=== PATIENT | male | born 1945 | race Caucasian/White ===

== ENCOUNTER 2018-08-21 15:21 | Outpatient (CLI) | payer MEDICARE, OTHER, SELFPAY ==
[2018-08-21 16:18] LABS: CREATININE 1.24 mg/dL (0.70-1.30)
== END 2018-08-21 15:41 ==
PROVIDERS: PCP Internal Medicine; Visit Provider Psychiatry & Neurology Neurology
DX: G61.82 Multifocal motor neuropathy (principal)
CPT/HCPCS: 36415; 82565

== ENCOUNTER 2018-08-29 02:24 | Outpatient (RCR) | payer MEDICARE, OTHER, SELFPAY ==
[2018-08-27 10:50] VITALS: BP 136/73; PULSE 59; RESP 18; TEMP 36.5; O2SAT 98
[2018-08-27] MEDS: IMMUNE GLOBULIN 10 GM/100 ML BTL IVPB (10:52)
[2018-08-27] MEDS: IMMUNE GLOBULIN 20 GM/200 ML BTL IVPB (10:52)
[2018-08-27] MEDS: Normal Saline Flush 10 ML SYR IVP (10:53)
[2018-08-27 11:12] VITALS: BP 133/75; PULSE 56; RESP 18; TEMP 36.6; O2SAT 98
[2018-08-27 11:32] VITALS: BP 135/80; PULSE 56; RESP 18; TEMP 36.6; O2SAT 98
[2018-08-27 12:10] VITALS: BP 133/80; PULSE 62; RESP 18; TEMP 36.5; O2SAT 96
[2018-08-28 10:24] VITALS: BP 133/80; PULSE 62; RESP 18; TEMP 36.5; O2SAT 96
[2018-08-28] MEDS: IMMUNE GLOBULIN 20 GM/200 ML BTL IVPB (10:35)
[2018-08-28] MEDS: Normal Saline Flush 10 ML SYR IVP (10:35)
[2018-08-28] MEDS: IMMUNE GLOBULIN 10 GM/100 ML BTL IVPB (10:35)
[2018-08-28 10:36] VITALS: BP 143/81; PULSE 64; RESP 18; TEMP 36.3; O2SAT 96
[2018-08-28 11:10] VITALS: BP 142/79; PULSE 65; RESP 18; TEMP 36.5; O2SAT 97
[2018-08-28 11:26] LABS: CREATININE 1.33 mg/dL (0.70-1.30); Estimated GFR 52.85 (mL/min/1.73m2)
[2018-08-28 11:32] VITALS: BP 142/83; PULSE 54; RESP 18; TEMP 36.5; O2SAT 98
[2018-08-29 10:43] VITALS: BP 152/82; PULSE 69; RESP 18; TEMP 36.6; O2SAT 98
[2018-08-29 10:53] LABS: CREATININE 1.27 mg/dL (0.70-1.30); Estimated GFR 55.75 (mL/min/1.73m2)
[2018-08-29] MEDS: IMMUNE GLOBULIN 10 GM/100 ML BTL IVPB (10:53)
[2018-08-29] MEDS: IMMUNE GLOBULIN 20 GM/200 ML BTL IVPB (10:53)
[2018-08-29] MEDS: Normal Saline Flush 10 ML SYR IVP (10:53)
[2018-08-29 11:03] VITALS: BP 168/91; PULSE 63; RESP 14; TEMP 36.6; O2SAT 97
[2018-08-29 11:27] VITALS: BP 145/68; PULSE 60; RESP 16; O2SAT 97
== END 2018-09-16 23:59 | disposition home or self-care (01) ==
LOC: INF 02:24
PROVIDERS: PCP Internal Medicine; Visit Provider Psychiatry & Neurology Neurology
DX: G61.82 Multifocal motor neuropathy (principal)
CPT/HCPCS: 36415; 96365; 96366; 82565; J1561

== ENCOUNTER → 2018-09-17 09:01 | Outpatient (BNVA) | payer MEDICARE, OTHER, SELFPAY | PROVIDERS: PCP Internal Medicine; Visit Provider Psychiatry & Neurology Neurology | DX: G61.82 Multifocal motor neuropathy (principal); I10 Essential (primary) hypertension | CPT/HCPCS: 99213 ==

== ENCOUNTER 2019-04-18 09:24 | Outpatient (CLI) | payer MEDICARE, OTHER, SELFPAY ==
[2019-04-18 10:17] LABS: CREATININE 1.34 mg/dL (0.70-1.30)
== END 2019-04-18 09:44 ==
PROVIDERS: PCP Internal Medicine; Visit Provider Psychiatry & Neurology Neurology
DX: G61.82 Multifocal motor neuropathy (principal)
CPT/HCPCS: 36415; 82565

== ENCOUNTER 2019-04-24 02:17 | Outpatient (RCR) | payer MEDICARE, OTHER, SELFPAY ==
[2019-04-22] VITALS (7 sets, daily range): BP systolic 120–140; BP diastolic 68–84; PULSE 59–70; RESP 17–19; TEMP 36.6–36.7; O2SAT 94–99
[2019-04-22] MEDS: Normal Saline Flush 10 ML SYR IVP (08:13)
[2019-04-22] MEDS: IMMUNE GLOBULIN 20 GM/200 ML BTL IVPB (08:13)
[2019-04-22] MEDS: IMMUNE GLOBULIN 10 GM/100 ML BTL IVPB (08:13)
[2019-04-23] VITALS (7 sets, daily range): BP systolic 124–154; BP diastolic 73–90; PULSE 59–72; RESP 17–19; TEMP 36.4–36.6; O2SAT 95–97
[2019-04-23] MEDS: Normal Saline Flush 10 ML SYR IVP (12:49)
[2019-04-23] MEDS: IMMUNE GLOBULIN 10 GM/100 ML BTL IVPB (12:49)
[2019-04-23] MEDS: IMMUNE GLOBULIN 20 GM/200 ML BTL IVPB (13:49)
[2019-04-24 08:09] VITALS: BP 134/86; PULSE 61; RESP 18; TEMP 36.3; O2SAT 97
[2019-04-24] MEDS: IMMUNE GLOBULIN 10 GM/100 ML BTL IVPB (08:13)
[2019-04-24 08:24] VITALS: BP 182/93; PULSE 63; RESP 19; TEMP 36.6; O2SAT 98
[2019-04-24 08:36] LABS: CREATININE 1.48 mg/dL (0.70-1.30); Estimated GFR 46.72 (mL/min/1.73m2)
[2019-04-24 08:40] VITALS: BP 151/84; PULSE 58; RESP 18; TEMP 36.6; O2SAT 96
[2019-04-24 09:10] VITALS: BP 150/80; PULSE 60; RESP 18; TEMP 36.4; O2SAT 97
[2019-04-24] MEDS: IMMUNE GLOBULIN 20 GM/200 ML BTL IVPB (09:14)
[2019-04-24] MEDS: Normal Saline Flush 10 ML SYR IVP (09:14)
[2019-04-24 09:40] VITALS: BP 128/80; PULSE 50; RESP 18; TEMP 36.7; O2SAT 96
[2019-04-24 10:10] VITALS: BP 126/74; PULSE 82; RESP 19; TEMP 36.7; O2SAT 97
== END 2019-05-18 23:59 | disposition home or self-care (01) ==
LOC: INF 02:17
PROVIDERS: PCP Internal Medicine; Visit Provider Psychiatry & Neurology Neurology
DX: G61.82 Multifocal motor neuropathy (principal)
CPT/HCPCS: 96365; 96366; 82565; J1561

== ENCOUNTER 2019-09-02 10:57 | Outpatient (REF) | payer MEDICARE, OTHER, SELFPAY ==
[2019-09-02 20:43] LABS: Anion Gap 7.7 mmol/L (3-11); BUN 31 mg/dL (7-18); CO2 33.3 mmol/L (21.0-32.0); CREATININE 1.23 mg/dL (0.70-1.30); Calcium 9.4 mg/dL (8.5-10.1); Chloride 101 mmol/L (98-107); Estimated GFR 57.68 (mL/min/1.73m2); Glucose 92 mg/dL (74-106); Sodium 142 mmol/L (136-145)
== END 2019-09-02 11:17 ==
LOC: NCHCN 10:57
PROVIDERS: PCP Internal Medicine; Visit Provider Internal Medicine
DX: I10 Essential (primary) hypertension (principal)
CPT/HCPCS: 80048

== ENCOUNTER → 2019-10-08 10:19 | Outpatient (BNVA) | payer MEDICARE, OTHER, SELFPAY | PROVIDERS: PCP Internal Medicine; Referring Provider Internal Medicine; Visit Provider Psychiatry & Neurology Neurology | DX: G61.82 Multifocal motor neuropathy (principal) | CPT/HCPCS: 99213 ==

== ENCOUNTER 2020-02-28 18:31 | Outpatient (REF) | payer MEDICARE, OTHER, SELFPAY ==
[2020-02-28 20:05] LABS: Calculated LDL 193 mg/dL (<100); Cholesterol 286 mg/dL (<200); HDL Cholesterol 58 mg/dL (40-60); Triglyceride 175 mg/dL (<150)
[2020-03-02 10:26] LABS: PSA, Screening 0.7 ng/mL (0.0-6.5)
== END 2020-02-28 18:51 ==
LOC: NCHCN 18:31
PROVIDERS: PCP Internal Medicine; Visit Provider Internal Medicine
DX: E78.5 Hyperlipidemia, unspecified (principal); Z12.5 Encounter for screening for malignant neoplasm of prostate
CPT/HCPCS: 80061; 84153

== ENCOUNTER 2020-06-04 00:59 | Outpatient (RCR) | payer MEDICARE, OTHER, SELFPAY ==
[2020-06-02] MEDS: IMMUNE GLOBULIN 10 GM/100 ML BTL IVPB (10:04)
[2020-06-02] MEDS: Normal Saline Flush 10 ML SYR IVP (10:04)
[2020-06-02 10:08] LABS: CREATININE 1.48 mg/dL (0.70-1.30); Estimated GFR 46.59 (mL/min/1.73m2)
[2020-06-02 10:09] VITALS: BP 126/74; PULSE 64; RESP 16; TEMP 36.5; O2SAT 100
[2020-06-02 10:17] VITALS: BP 108/75; PULSE 64; RESP 16; TEMP 36.6; O2SAT 97
[2020-06-02 10:33] VITALS: BP 125/76; PULSE 62; RESP 16; TEMP 36.6; O2SAT 96
[2020-06-02 11:04] VITALS: BP 133/74; PULSE 60; RESP 17; TEMP 36.6; O2SAT 96
[2020-06-02] MEDS: IMMUNE GLOBULIN 20 GM/200 ML BTL 2.44 GM IVPB (11:05)
[2020-06-03] MEDS: IMMUNE GLOBULIN 10 GM/100 ML BTL 1.23 GM IVPB (09:41)
[2020-06-03] MEDS: Normal Saline Flush 10 ML SYR IVP (09:42)
[2020-06-03 09:44] VITALS: BP 147/87; PULSE 69; RESP 18; TEMP 36.2; O2SAT 99
[2020-06-03 09:55] VITALS: BP 150/88; PULSE 64; RESP 18; TEMP 36.5; O2SAT 98
[2020-06-03 10:10] VITALS: BP 136/86; PULSE 67; RESP 17; TEMP 36.5; O2SAT 97
[2020-06-03 10:40] VITALS: BP 131/80; PULSE 59; RESP 17; TEMP 36.6; O2SAT 98
[2020-06-03] MEDS: IMMUNE GLOBULIN 20 GM/200 ML BTL IVPB (10:42)
[2020-06-03 11:12] VITALS: BP 150/78; PULSE 67; RESP 16; TEMP 36.7; O2SAT 97
[2020-06-04 09:41] VITALS: BP 157/95; PULSE 66; RESP 18; TEMP 36.2; O2SAT 99
[2020-06-04] MEDS: IMMUNE GLOBULIN 10 GM/100 ML BTL 1.23 GM IVPB (09:45)
[2020-06-04 09:50] VITALS: BP 133/82; PULSE 63; RESP 18; TEMP 36.6; O2SAT 98
[2020-06-04] MEDS: Normal Saline Flush 10 ML SYR IVP (09:58)
[2020-06-04 10:10] VITALS: BP 133/78; PULSE 62; RESP 16; TEMP 36.6; O2SAT 99
[2020-06-04 10:15] LABS: CREATININE 1.78 mg/dL (0.70-1.30); Estimated GFR 37.65 (mL/min/1.73m2)
[2020-06-04 10:42] VITALS: BP 119/75; PULSE 61; RESP 17; TEMP 36.5; O2SAT 96
[2020-06-04] MEDS: IMMUNE GLOBULIN 20 GM/200 ML BTL 2.44 GM IVPB (10:48)
[2020-06-04 11:12] VITALS: BP 120/73; PULSE 57; RESP 14; TEMP 36.1; O2SAT 99
[2020-06-04] MEDS: Bacitracin 1 PACKET (11:30)
== END 2020-06-18 23:59 | disposition home or self-care (01) ==
LOC: INF 00:59
PROVIDERS: PCP Internal Medicine; Visit Provider Psychiatry & Neurology Neurology
DX: G61.82 Multifocal motor neuropathy (principal); Z45.2 Encounter for adjustment and management of vascular access device
CPT/HCPCS: 36410; 36415; 96365; 96366; 82565; J1561

== ENCOUNTER 2020-07-01 04:46 | Outpatient (CLI) | payer MEDICARE, OTHER, SELFPAY ==
[2020-07-01 15:32] LABS: CREATININE 1.37 mg/dL (0.70-1.30); Estimated GFR 50.93 (mL/min/1.73m2)
== END 2020-07-01 05:06 ==
PROVIDERS: PCP Internal Medicine; Visit Provider Psychiatry & Neurology Neurology
DX: G61.82 Multifocal motor neuropathy (principal)
CPT/HCPCS: 36415; 82565

== ENCOUNTER 2020-08-27 15:17 | Outpatient (REF) | payer MEDICARE, OTHER, SELFPAY ==
[2020-08-27 20:37] LABS: Calculated LDL 128 mg/dL (<100); Cholesterol 213 mg/dL (<200); HDL Cholesterol 55 mg/dL (40-60); Triglyceride 154 mg/dL (<150)
== END 2020-08-27 15:18 | disposition home or self-care (01) ==
LOC: NCHCN 15:17
PROVIDERS: PCP Internal Medicine; Visit Provider Internal Medicine
DX: E78.5 Hyperlipidemia, unspecified (principal)
CPT/HCPCS: 80061

== ENCOUNTER 2021-03-18 11:18 | Outpatient (REF) | payer MEDICARE, OTHER, SELFPAY ==
[2021-03-18 21:20] LABS: BUN 25 mg/dL (7-18); CREATININE 1.2 mg/dL (0.70-1.30); Calcium 9.5 mg/dL (8.5-10.1); Chloride 101 mmol/L (98-107); Estimated GFR 59.18 (mL/min/1.73m2); Glucose 84 mg/dL (74-106); Potassium 4.1 mmol/L (3.5-5.1); Sodium 141 mmol/L (136-145)
== END 2021-03-18 11:19 | disposition home or self-care (01) ==
LOC: NCHCN 11:18
PROVIDERS: PCP Internal Medicine; Visit Provider Internal Medicine
DX: I10 Essential (primary) hypertension (principal); R05 Cough; F90.0 Attention-deficit hyperactivity disorder, predominantly inattentive type; F34.1 Dysthymic disorder
CPT/HCPCS: 80048

== ENCOUNTER 2021-03-25 02:36 | Outpatient (RCR) | payer MEDICARE, OTHER, SELFPAY ==
[2021-03-23] VITALS (7 sets, daily range): BP systolic 117–143; BP diastolic 65–78; PULSE 54–65; RESP 16–17; TEMP 36.3–36.6; O2SAT 97–98
[2021-03-23] MEDS: IMMUNE GLOBULIN 10 GM/100 ML BTL IVPB (13:36)
[2021-03-23] MEDS: Normal Saline Flush 10 ML SYR IVP (14:03)
[2021-03-23 14:05] LABS: CREATININE 1.4 mg/dL (0.70-1.30); Estimated GFR 49.54 (mL/min/1.73m2)
[2021-03-23] MEDS: IMMUNE GLOBULIN 20 GM/200 ML BTL IVPB (14:34)
[2021-03-24] MEDS: IMMUNE GLOBULIN 10 GM/100 ML BTL IVPB (10:33)
[2021-03-24 10:45] VITALS: BP 116/66; PULSE 58; RESP 17; TEMP 36.5; O2SAT 97
[2021-03-24] MEDS: Normal Saline Flush 10 ML SYR IVP (10:45)
[2021-03-24 11:00] VITALS: BP 121/70; PULSE 54; RESP 17; TEMP 36.5; O2SAT 97
[2021-03-24 11:14] VITALS: BP 117/68; PULSE 49; RESP 17; TEMP 36.2; O2SAT 98
[2021-03-24] MEDS: IMMUNE GLOBULIN 20 GM/200 ML BTL IVPB (11:42)
[2021-03-24 11:45] VITALS: BP 117/68; PULSE 49; RESP 17; TEMP 36.2; O2SAT 97
[2021-03-24 12:18] VITALS: BP 133/79; PULSE 56; RESP 17; TEMP 36.5; O2SAT 96
[2021-03-25 10:25] VITALS: BP 127/72; PULSE 63; RESP 16; TEMP 36.4; O2SAT 97
[2021-03-25] MEDS: Normal Saline Flush 10 ML SYR IVP (10:26)
[2021-03-25] MEDS: IMMUNE GLOBULIN 10 GM/100 ML BTL IVPB (10:26)
[2021-03-25 10:40] VITALS: BP 118/62; PULSE 49; RESP 18; TEMP 36.5; O2SAT 97
[2021-03-25 10:44] LABS: CREATININE 1.3 mg/dL (0.70-1.30); Estimated GFR 53.96 (mL/min/1.73m2)
[2021-03-25 10:55] VITALS: BP 112/61; PULSE 51; RESP 17; TEMP 36.6; O2SAT 97
[2021-03-25 11:25] VITALS: BP 118/61; PULSE 51; RESP 17; TEMP 36.5; O2SAT 100
[2021-03-25] MEDS: IMMUNE GLOBULIN 20 GM/200 ML BTL IVPB (11:25)
[2021-03-25 11:55] VITALS: BP 123/67; PULSE 53; RESP 17; TEMP 36.3; O2SAT 98
== END 2021-04-18 23:59 | disposition home or self-care (01) ==
LOC: INF 02:36
PROVIDERS: PCP Internal Medicine; Visit Provider Psychiatry & Neurology Neurology
DX: G61.82 Multifocal motor neuropathy (principal)
CPT/HCPCS: 36410; 36415; 36592; 96365; 96366; 82565; J1459

== ENCOUNTER 2021-11-03 17:20 | Outpatient (REF) | payer MEDICARE, OTHER, SELFPAY ==
[2021-11-03 20:52] LABS: Anion Gap 10.5 mmol/L (3-11); BUN 18 mg/dL (7-18); CO2 31.5 mmol/L (21.0-32.0); CREATININE 1.3 mg/dL (0.70-1.30); Calcium 8.7 mg/dL (8.5-10.1); Chloride 96 mmol/L (98-107); Estimated GFR 53.82 (mL/min/1.73m2); Glucose 89 mg/dL (74-106); Potassium 3.8 mmol/L (3.5-5.1); Sodium 138 mmol/L (136-145)
== END 2021-11-03 17:21 | disposition home or self-care (01) ==
LOC: NCHCN 17:20
PROVIDERS: PCP Internal Medicine; Visit Provider Internal Medicine
DX: I10 Essential (primary) hypertension (principal); N18.2 Chronic kidney disease, stage 2 (mild)
CPT/HCPCS: 80048

== ENCOUNTER 2021-11-23 19:20 | Outpatient (REF) | payer MEDICARE, OTHER, SELFPAY ==
[2021-11-25 11:45] LABS: COVID-19 RT-PCR UVMMC Result Negative (Negative)
== END 2021-11-23 19:21 | disposition home or self-care (01) ==
LOC: NCHCN 19:20
PROVIDERS: PCP Internal Medicine; Visit Provider Internal Medicine
DX: Z20.822 Contact with and (suspected) exposure to COVID-19 (principal)
CPT/HCPCS: U0003; U0005

== ENCOUNTER 2022-09-05 15:52 | Outpatient (REF) | payer MEDICARE, OTHER, SELFPAY ==
[2022-09-05 15:55] LABS: HCT 43.6 % (40.0-50.0); HGB 14.4 g/dL (13.5-17.5); MCH 31.2 pg (27.0-33.0); MCV 95 fL (80-95); MPV 10.3 fL (8.0-11.0); Platelet Count 329 10^3/uL (130-400); RBC 4.61 10^6/uL (4.36-5.78); RDW 12.4 % (11.8-14.1)
[2022-09-05 16:46] LABS: Anion Gap 7.1 mmol/L (3-11); BUN 23 mg/dL (7-18); CO2 31.9 mmol/L (21.0-32.0); CREATININE 1.3 mg/dL (0.70-1.30); Calcium 9.7 mg/dL (8.5-10.1); Chloride 104 mmol/L (98-107); Estimated GFR 56.93 (mL/min/1.73m2); Glucose 98 mg/dL (74-106); Potassium 4.4 mmol/L (3.5-5.1); Sodium 143 mmol/L (136-145); TSH 2.46 uIU/mL (0.36-3.74)
== END 2022-09-05 15:53 | disposition home or self-care (01) ==
LOC: NCHCN 15:52
PROVIDERS: PCP Internal Medicine; Visit Provider Internal Medicine
DX: I10 Essential (primary) hypertension (principal); R53.83 Other fatigue; N18.2 Chronic kidney disease, stage 2 (mild); F90.0 Attention-deficit hyperactivity disorder, predominantly inattentive type
CPT/HCPCS: 80048; 85027; 84443

== ENCOUNTER → 2023-04-24 00:23 | Outpatient (CLI) | payer MEDICARE, OTHER, SELFPAY ==
--- NOTE | 2023-04-24 10:41 | DI.RAD_ITS ---
Exam(s) XR CHEST 2V PA LATERAL EXAM: XR CHEST 2V PA LATERAL CLINICAL HISTORY: CHRONIC COUGH R05.3 TECHNIQUE: 2D digital imaging was performed of the chest. Three images were obtained. PA and later al views were obtained. COMPARISON: No exams were available for comparison FINDINGS: MEDIASTINUM: Normal. HEART: Normal. PULMONARY VASCULATURE: Normal. LUNGS: Clear. PLEURAL SPACE: No pleural effusion or pneumothorax. BONE:Within normal limits for the patient's age. OTHER FINDINGS:Nipple shadows are seen. IMPRESSION: No acute pulmonary findings. DATA REPOSITORY: RADIATION DOSE DELIVERED:
== END ==
PROVIDERS: PCP Internal Medicine; Visit Provider Internal Medicine
DX: R05.3 Chronic cough (principal)
CPT/HCPCS: 71046

== ENCOUNTER 2024-10-07 09:14 | Outpatient (CLI) | payer MEDICARE, OTHER, SELFPAY ==
[2024-10-07 12:43] LABS: ALT 34 U/L (16-63); AST 30 U/L (15-37); Albumin 4.4 g/dL (3.4-5.0); Alkaline Phosphatase 80 U/L (46-116); BUN 16 mg/dL (7-18); Bilirubin, Total 0.4 mg/dL (0.2-1.0); CREATININE 1.4 mg/dL (0.70-1.30); Calcium 9.6 mg/dL (8.5-10.1); Calculated LDL 94 mg/dL (<100); Chloride 106 mmol/L (98-107); Cholesterol 178 mg/dL (<200); Estimated GFR 51.45 (mL/min/1.73m2); Glucose 104 mg/dL (74-106); HDL Cholesterol 71 mg/dL (>or=40); Potassium 4.2 mmol/L (3.5-5.1); Sodium 144 mmol/L (136-145); Total Protein 8.1 g/dL (6.4-8.2); Triglyceride 68 mg/dL (<150)
[2024-10-08 11:11] LABS: Hepatitis C Ab w Rflx HCV PCR Negative (Negative)
== END 2024-10-07 09:15 | disposition home or self-care (01) ==
PROVIDERS: PCP Family Medicine; Referring Provider Family Medicine; Visit Provider Family Medicine
DX: Z11.59 Encounter for screening for other viral diseases; I10 Essential (primary) hypertension
CPT/HCPCS: 36415; 80053; 80061; 86803